=== PATIENT | female | born 1965 | race Caucasian/White ===

== ENCOUNTER → 2021-05-21 | Outpatient (CLI) | payer BC ==
[~2021-05-21] MED LIST: BACTRIM PO; CELEBREX200 MG PO; DOCUSATE SODIU250 MG PO; FAMOTIDINE20 MG PO; FEROSUL325 MG PO; FOLIC ACID1 MG PO; HYDROCHLOROTH12.5 MG PO; HYDROCODONE-AC1 EACH PO; IBUPROFEN600 MG PO; LEVOTHYROXINE100 MC2 PO; METHOTREXATE T2.5 MG PO; OXYBUTYNIN CHLOR5 MG PO; WELLBUTRIN XL300 MG PO; [UNRECOGNIZED DRUG - OTHER] IV
[2021-05-21 10:37] LABS: HEMOGLOBIN 13.8 gm/dl (12.3-15.3); RED BLOOD COUNT 4.21 M/UL (4.00-5.10); WHITE BLOOD COUNT 7.7 K/UL (4.5-11.0)
[2021-05-21 11:03] LABS: BUN/CREATININE RATIO 12 (0-10)
== END ==
LOC: OPSV2 09:13
PROVIDERS: Anesthesiology; Obstetrics & Gynecology
DX: Z01.818 Encounter for other preprocedural examination (principal); N81.9 Female genital prolapse, unspecified; R91.8 Other nonspecific abnormal finding of lung field
CPT/HCPCS: 36415; 71046; 80048; 81001; 85025; 87077; 87086; 87186; 93005

== ENCOUNTER → 2021-05-28 | Day surgery (SDC) | payer BC | END | disposition home or self-care (01) | LOC: OR 07:30 | DX: N99.3 Prolapse of vaginal vault after hysterectomy (principal); N81.9 Female genital prolapse, unspecified; R39.14 Feeling of incomplete bladder emptying; R32 Unspecified urinary incontinence; Z20.822 Contact with and (suspected) exposure to COVID-19; I10 Essential (primary) hypertension; I73.9 Peripheral vascular disease, unspecified; Z87.891 Personal history of nicotine dependence; M06.9 Rheumatoid arthritis, unspecified; E03.9 Hypothyroidism, unspecified; Z98.51 Tubal ligation status | CPT/HCPCS: C1769; J0690; J1100; J1885; J2250; J2405; J2704; J3010; J7030; J7050; J7120 ==

== ENCOUNTER → 2021-08-03 | Outpatient (CLI) | payer BC | LOC: KOH-I 15:14 | DX: M54.41 Lumbago with sciatica, right side (principal) | CPT/HCPCS: 72100 ==

== ENCOUNTER 2021-10-18 12:37 | Emergency (ER) | payer BC ==
[2021-10-18 13:40] LABS: HEMOGLOBIN 14.2 gm/dl (12.3-15.3); RED BLOOD COUNT 4.52 M/UL (4.00-5.10)
[2021-10-18] MEDS ORDERED: OMNICEF 300 MG300 MG PO (15:21)
[2021-10-18] MEDS ORDERED: PYRIDIUM200 MG PO (15:21)
[2021-10-18] MEDS ORDERED: ZOFRAN ODT 4 MG4 MG SL (15:33)
== END 2021-10-18 16:20 | disposition home or self-care (01) ==
LOC: ER1 12:37
PROVIDERS: Physician Assistant
DX: N30.00 Acute cystitis without hematuria (principal); F17.200 Nicotine dependence, unspecified, uncomplicated; Z91.041 Radiographic dye allergy status
CPT/HCPCS: 80053; 81001; 85025; 99284

== ENCOUNTER → 2021-12-09 | Outpatient (CLI) | payer BC ==
[~2021-12-09] MED LIST changes: +OMNICEF 300 MG300 MG PO; +PYRIDIUM200 MG PO; +ZOFRAN ODT 4 MG4 MG SL
== END ==
LOC: KOH-I 08:50
DX: M47.27 Other spondylosis with radiculopathy, lumbosacral region (principal)
CPT/HCPCS: 72148

== ENCOUNTER 2022-01-21 17:10 | Emergency (ER) | payer BC ==
[2022-01-21 17:51] LABS: HEMOGLOBIN 15.2 gm/dl (12.3-15.3); RED BLOOD COUNT 4.63 M/UL (4.00-5.10); WHITE BLOOD COUNT 5.5 K/UL (4.5-11.0)
[2022-01-21 18:11] LABS: BUN/CREATININE RATIO 22 (0-10)
[2022-01-21] MEDS ORDERED: OMNICEF 300 MG300 MG PO (20:08)
[2022-01-21] MEDS ORDERED: IMODIUM CAP 2 MG2 MG PO (20:10)
[2022-01-21] MEDS ORDERED: ZOFRAN ODT 4 MG4 MG SL (20:10)
== END 2022-01-21 20:51 | disposition home or self-care (01) ==
LOC: ER1 17:10
PROVIDERS: Student in an Organized Health Care Education/Training Program
DX: N39.0 Urinary tract infection, site not specified (principal); R19.7 Diarrhea, unspecified; E11.9 Type 2 diabetes mellitus without complications; F17.210 Nicotine dependence, cigarettes, uncomplicated; Z91.041 Radiographic dye allergy status
CPT/HCPCS: 80053; 81001; 83690; 85025; 96374; 99284; J0696

== ENCOUNTER 2022-05-16 15:19 | Emergency (ER) | payer BC ==
[~2022-05-16 15:19] MED LIST changes: +IMODIUM CAP 2 MG2 MG PO
== END 2022-05-16 19:31 | disposition home or self-care (01) ==
LOC: ER1 15:19
DX: S70.02XA Contusion of left hip, initial encounter (principal); M54.50 Low back pain, unspecified; M06.9 Rheumatoid arthritis, unspecified; F19.20 Other psychoactive substance dependence, uncomplicated; E11.9 Type 2 diabetes mellitus without complications; F17.290 Nicotine dependence, other tobacco product, uncomplicated; Z91.041 Radiographic dye allergy status; W19.XXXA Unspecified fall, initial encounter
CPT/HCPCS: 72131; 72192; 99283

== ENCOUNTER → 2022-06-02 | Outpatient (CLI) | payer BC | LOC: KOH-I 15:05 | DX: M25.571 Pain in right ankle and joints of right foot (principal); S82.64XA Nondisplaced fracture of lateral malleolus of right fibula, initial encounter for closed fracture | CPT/HCPCS: 73610 ==

== ENCOUNTER → 2022-06-21 | Outpatient (CLI) | payer BC | LOC: KOH-I 15:48 | DX: Z87.891 Personal history of nicotine dependence (principal); R91.8 Other nonspecific abnormal finding of lung field | CPT/HCPCS: 71271 ==

== ENCOUNTER → 2022-06-28 | Outpatient (CLI) | payer BC | LOC: KOH-I 09:24 | DX: S82.831D Other fracture of upper and lower end of right fibula, subsequent encounter for closed fracture with routine healing (principal) | CPT/HCPCS: 73610 ==